=== PATIENT | female | born 1985 ===

== ENCOUNTER 2024-02-14 09:47 | Outpatient (REF) | payer BC, SELFPAY ==
--- NOTE | ~2024-02-14 | MM_ITS ---
EXAMINATION: MM SCREENING DIGITAL BREAST TOMOSYNTHESIS, BILATERAL CLINICAL INFORMATION: Screening. Asymptomatic. COMPARISON: Mammography: Baseline. TECHNIQUE: Digital mammography is performed in craniocaudal and mediolateral oblique views along with computer-aided detection (CAD). Digital breast tomosynthesis is performed in implant-displaced craniocaudal and implant-displaced mediolateral oblique views along with computer-aided detection (CAD). FINDINGS: The breasts are heterogeneously dense, which may obscure small masses (ACR BI-RADS breast composition Category c). Bilateral prepectoral implants are normal-appearing. There are no significant masses, abnormal calcifications, or other abnormalities. MM/MM tomosynthesis screen imp BI IMPRESSION: There are no significant changes from prior study. ASSESSMENT: BI-RADS BI-RADS 2 - Benign Findings RECOMMENDATION: Routine annual mammography screening. 1 year F/U This patient's information was entered into a reminder system with a target due date for their next mammogram. Electronically signed by: Cytnhia Valdez DO 03/06/2024 10:36 PM EDT
== END 2024-02-14 09:48 | disposition home or self-care (01) ==
LOC: HO.MAMMO 09:47
PROVIDERS: PCP Nurse Practitioner Family; Visit Provider Nurse Practitioner Family
DX: Z12.31 Encounter for screening mammogram for malignant neoplasm of breast (principal)
CPT/HCPCS: 77063; 77067

== ENCOUNTER → 2024-02-14 10:00 | Outpatient (BNV) | payer BC, SELFPAY | PROVIDERS: PCP Nurse Practitioner Family; Visit Provider Internal Medicine | DX: Z12.31 Encounter for screening mammogram for malignant neoplasm of breast (principal) | CPT/HCPCS: 77063; 77067 ==

== ENCOUNTER 2024-03-05 10:48 | Outpatient (AMB) | payer BC, SELFPAY ==
--- NOTE | 2024-03-05 10:53 | A.OFFPC_ITS ---
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 Intake Note: patient here for new patient visit Mail Sorter Required: Yes Mail Sorter Language: Citizen Of [place] Is last menstrual period known: Yes Last menstrual period: 02/17/24 Post menopausal: No Patient : No Allergies No Known Allergies Allergy (Verified 03/05/24 11:13) Tobacco use date assessed: 03/05/24 Dental Screening Dental Screen Date: 03/05/24 Did you have a dental visit in the last 12 months?: Yes Did you have a dental problem in the last 6 months where you did not have access to dental care?: No Was dental information given to patient?: Patient has dentist HPI HPI Comments History of Present Illness Details New patient Citizen Of [place]-speaking. Recolated from [place] 3 months ago Prior PCP:? In the [facility] Last office visit/CPE: Last year Acute issue(s): She notes that she generally eats healthy. She does not currently exercise. Sleep has been an issue because she has a lot to process on her mind. She is not used to her new environment in [place] and has a 9 year old child she cares for all alone. She notes that she gets anxious at times. She denies h/o anxiety or depression. She is willing to connect with a therapist PMHx: Astigmatism right eye SurgHx: Breasts implant FHx: Mom: Diabetes, Dad: Diabetes SocHx: Nonsmoker. Does not drink alcohol. No recreational drugs Last eye exam was 1 year in [place] Last mammogram test was with 3 weeks ago; awaiting result. 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 1. Little interest or pleasure in doing things: several days 2. Feeling down, depressed, or hopeless: several days 3. Trouble falling or staying asleep, or sleeping too much: more than half the days 4. Feeling tired or having little energy: several days 5. Poor appetite or overeating: not at all 6. Feeling bad about yourself - or that you are a failure or have let yourself or your family down: not at all 7. Trouble concentrating on things, such as reading the newspaper or watching television: several days 8. Moving or speaking so slowly that other people could have noticed. Or the opposite - being so fidgety or restless that you have been moving around a lot more than usual: not at all 9. Thoughts that you would be better off or of hurting yourself in some way: not at all Total score: 6 Depression Screening Interpretation: Negative Depression Screening Done: Yes 85857 - PHQ-9 Billing: Yes Source: Developed by Drs. Kt Enciso, eBty Parker, Liam Ardon and colleagues, with an educational jackie from [employer]. Thrive Questionnaire Date Thrive assessed: 03/05/24 I am a: Patient What is your living situation today?: I have a steady place to live Within the past 12 months, did the food you bought not last and you didn't have the money to get more?: Sometimes True Within the past 12 months, did you worry whether your food would run out before you got money to buy more?: Sometimes True Do you have trouble paying for medicines?: No Do you have trouble getting transportation to medical appointments?: No Do you have trouble paying your heating and electricity bill?: No Do you have trouble taking care of your child, family member or friend?: No Do you have trouble with day-to-day activities such as bathing, preparing meals, shopping, managing finances, etc.?: No Are you currently unemployed and looking for a job?: No Are you interested in more education?: Yes Please select the resources that you would like help with: Education Currently or been in a relationship where the following occur: No concerns reported THRIVE Score: 2 AUDIT C Alcohol Use Questionnaire (AUDIT-C) 1. How often do you have a drink containing alcohol?: Never Total Score: 0 Score Reviewed/Action Taken: Yes ROOPA-7 AMB Questionnaire ROOPA-7 Date ROOPA - 7 assessed: 03/05/24 Feeling nervous, anxious, or on edge: 0 = Not at all Not being able to stop or control worryin = Not at all Worrying too much about different things: 1 = Several days Trouble relaxin = Several days Being so restless that it is hard to sit still: 1 = Several days Becoming easily annoyed or irritable: 0 = Not at all Feeling afraid as if something awful might happen: 1 = Several days Total ROOPA-7 score (0-4 normal; 5-9 mild; 10-14 moderate; 15-21 severe): 4 Source: Developed by Drs. Kt Enciso, Bety Parker, Liam Ardon and colleagues, with an educational jackie from [employer]. ROOPA-7 Assessment Billing ROOPA-7 Assessment Tool: ROOPA-7 Assessment 57535 Review of Systems Const Details: Denies chills, Denies fatigue, Denies fever(s), Denies headache(s) and Denies weakness HEENT Denies change in vision, Denies dizziness, Denies headache(s), Denies hearing loss, Denies nasal congestion, Denies sinus pain, Denies sinus pressure and Denies sore throat Card Denies chest pain, Denies lightheadedness, Denies dyspnea and Denies other (palpitations) Resp Denies cough, Denies dyspnea and Denies wheezing GI Denies abdominal pain, Denies melena, Denies hematochezia, Denies change in bowel habits, Denies dyspepsia and Denies nausea Denies hematuria and Denies dysuria Musc Denies abnormal gait, Denies myalgias, Denies arthralgias, Denies numbness and Denies tingling Skin/Breast Denies rash, Denies unusual bruising and Denies wounds Neuro Denies abnormal gait, Denies dizziness, Denies headache(s), Denies memory loss, Denies numbness, Denies Sensory deficit (Neuro), Denies tingling and Denies weakness Psych Denies anxiety, Denies depression and Denies memory loss Endo Denies cold intolerance, Denies fatigue, Denies heat intolerance, Denies polydipsia and Denies polyuria Ata/Lymph Denies easy bleeding and Denies easy bruising Aller/Immun Denies wheezing Physical exam (Primary Care) Vital Signs: Last Vital Signs Temp 98.2 F 03/05/24 11:02 Pulse 68 03/05/24 11:02 Resp 16 03/05/24 11:02 BP 100/78 03/05/24 11:02 Pulse Ox 100 03/05/24 11:02 Oxygen Delivery Method Room Air 03/05/24 11:02 BMI result Body Mass Index 23.8 Tobacco/Smoking Status: Tobacco use Status Tobacco use date assessed 03/05/24 03/05/24 11:02 Patient Tobacco Use Status Never used Tobacco 03/05/24 11:02 e-Cigarette/Vaping Use Never Used 03/05/24 11:02 PHQ-9: PHQ-9 Score PHQ-9: Total score 6 03/05/24 11:36 Depression Screening Interpretation: Negative Thrive Assessment: Date of Thrive Assessment Date Thrive assessed 03/05/24 03/05/24 11:13 Currently or been in a relationship where the following occur: No concerns reported Const Other: General: no acute distress, well developed, alert and awake Nutritional Appearance: well nourished Orientation/consciousness: patient oriented x3 HENMT Head: Yes normocephalic and Yes atraumatic Ears: hearing grossly normal bilaterally and TM's normal bilaterally General nose exam: Normal external nose present and Normal nares present Mouth: Normal oral and palatal mucosa present and moist mucous membranes Teeth and gingiva: dentition normal Throat: Yes oropharynx normal Eyes Pupils: Equal, round and reactive pupils present and Pupil accommodation reflex normal EOM: EOMs intact bilaterally Neck Neck: Yes normal visual inspection, Yes no lymphadenopathy and Yes trachea midline Thyroid: Thyroid normal Carotids: no bruits Lymphatic: no lymphadenopathy noted Chest Chest palpation & inspection: normal inspection of the chest Resp Effort & Inspection: normal respiratory effort Auscultation: clear to auscultation bilaterally Cardio Rate: regular rate Rhythm: regular rhythm Heart sounds: S1 normal heart sound present, S2 normal heart sound present, no gallops, no murmurs and no rubs Bruits: no abdominal aortic bruits and no carotid bruits GI Palpation (GI): No Abdominal aortic bruit present, Soft to palpation, nontender, No hepatosplenomegaly present and No Rebound tenderness present Auscultation: normal bowel sounds General: Yes no CVA tenderness Back/Spine/Pelvis Back: no CVA tenderness Cervical Spine: cervical ROM normal and No Cervical spine tenderness Thoracic/Lumbar Spine: thoraco-lumbar ROM normal, No pain with thoraco-lumbar ROM, No thoracic spinal tenderness and No lumbar spinal tenderness Skin General: warm and dry. Normal skin color. Normal skin turgor Lesions: no lesions Rashes: no rashes Trauma: no lacerations or abrasions Wounds: no wounds Nails: normal Neuro General: patient oriented x3, gait normal and CN's II-XI intact bilaterally Cranial nerves: Yes Equal, round and reactive pupils present Cognition (Neuro): normal cognition Gait exam (Neuro): Normal gait present Motor exam (neuro): 5/5 motor strength present throughout Sensory Exam: No Sensory deficit (Neuro) Deep tendon reflexes (DTR's): Right patellar reflex intensity grade: 2+ and Left patellar reflex intensity grade: 2+ Extrem General: Yes normal to inspection, No edema and No calf tenderness Psych Appearance: grossly normal Affect: normal affect Attitude: cooperative Thought process: Normal thought process present Assessment and Plan Assessment & Plan (1) Normal physical examination, routine: Code(s): Z00.00 - Encounter for general adult medical examination without abnormal findings Plan: No significant physical restrictions or limitations noted Healthy diet and routine exercise encouraged Advised to get lab work done and follow-up in 2-3 weeks for telehealth visit for labs review Return with worsening or new symptoms Verbalized understanding and agreed with the plan (2) Anxiousness: Code(s): F41.9 - Anxiety disorder, unspecified Plan: She relocated from [place] to [place] 3 months ago. She is trying to adjust to her new environment. She also has a 9-year-old child she soley supports Sleep has been an issue. She has a lot to process on her mind. She is anxious at times Instructed on sleep hygiene Routine exercise encouraged She met with the [facility] who will refer her to a therapist Advised to follow-up with worsening or new symptoms Verbalized understanding and agreed with the plan (3) Sleep disturbance: Code(s): G47.9 - Sleep disorder, unspecified Plan: Plan as above (4) Routine eye exam: Code(s): Z01.00 - Encounter for examination of eyes and vision without abnormal findings Plan: Last eye exam was 1 year in [place] Referred to Ophthalmology for routine eye exam (5) Laboratory tests ordered as part of a complete physical exam (CPE): Code(s): Z00.00 - Encounter for general adult medical examination without abnormal findings Plan: Fasting labs ordered as part of a complete physical exam. Advised to fast for at least 10 hours before getting labs drawn. May drink water Verbalized understanding and agreed with treatment plan. Orders: Orders Complete Blood Count Auto Diff Today Z00.00 - Encounter for general adult medical examination without abnormal findings Comprehensive Watkins. Panel Fast Today Z00.00 - Encounter for general adult medical examination without abnormal findings Lipid Panel Today Z00.00 - Encounter for general adult medical examination without abnormal findings TSH reflex Free T4 Today Z00.00 - Encounter for general adult medical examination without abnormal findings Microalbumin, Random (w Creat) Today Z00.00 - Encounter for general adult medical examination without abnormal findings UA CC w/rflx Micro + Cult Today Z00.00 - Encounter for general adult medical examination without abnormal findings Referrals Ophthalmology Referral Z01.00 - Encounter for examination of eyes and vision without abnormal findings Coding Level of Care Code New Pt Prev Care 40-64y(54447) Diagnoses Normal physical examination, routine Z00.00 Anxiousness F41.9 Sleep disturbance G47.9 Routine eye exam Z01.00 Laboratory tests ordered as part of a complete physical exam (CPE) Z00.00 Additional Codes ROOPA-7 Assessment Billing - ROOPA-7 Assessment Tool: ROOPA-7 Assessment 12514 ([id number])
[2024-03-05 11:02] VITALS: BP 100/78; PULSE 68; RESP 16; TEMP 36.8; O2SAT 100; BMI 23.8
== END 2024-03-05 12:03 | disposition home or self-care (01) ==
PROVIDERS: PCP Nurse Practitioner Family; Visit Provider Nurse Practitioner Family
DX: Z00.00 Encounter for general adult medical examination without abnormal findings (principal); F41.9 Anxiety disorder, unspecified; G47.9 Sleep disorder, unspecified

== ENCOUNTER 2024-03-05 10:48 | Outpatient (REF) | payer BC, SELFPAY ==
[2024-03-05 15:13] LABS: Basophils Absolute Auto 0.1 X10*3/uL (0.0-0.2); Basophils Percent Auto 0.7 % (0-2); Eosinophils Percent Auto 0.1 % (0-4); Hematocrit 46.8 % (37.0-47.0); Hemoglobin 15.1 g/dl (12.0-16.0); Imm Gran Abs Auto 0.02 X10*3/uL (0.00-0.03); Imm Gran Pct Auto 0.3 % (0.0-0.4); Lymphocytes Absolute Auto 2.6 X10*3/uL (1.2-4.9); Lymphocytes Percent Auto 34.3 % (20-40); Mean Corpuscular HGB Conc 32.3 g/dl (31.0-35.0); Mean Corpuscular Volume 86.8 fL (80.0-98.0); Mean Platelet Volume 8.7 fL (9.4-12.3); Monocytes Absolute Auto 0.4 X10*3/uL (0.1-1.2); Neutrophils Absolute Auto 4.4 x10*3/uL (2.0-8.3); Neutrophils Percent Auto 59.6 % (45-73); Platelet Count 730 X10*3/uL (160-400); Red Blood Count 5.39 X10*6/uL (4.20-5.50); Red Cell Distribution Width 12.8 % (11.0-16.0); White Blood Count 7.4 X10*3/uL (4.8-10.8)
[2024-03-05 15:17] LABS: Appearance Urine Cloudy; Color Urine Yellow; Glucose Urine UA Negative (Negative); Leukocyte Esterase Urine Large (3+) (Negative); Nitrite Urine Negative (Negative); PH 7.5 (5.0-9.0); Specific Gravity - Urine 1.015 (1.005-1.025); UMIC TRIGGER UACC YES; Urine Blood Trace (Negative); Urine Ketones Negative (Negative); Urine Protein 30 (1+) mg/dL (Neg-Trace)
[2024-03-05 15:21] LABS: Bacteria Urine 2+ (None Seen); Hyaline Casts Urine 0-2 /LPF (0-2); UACC Culture Trigger YES; WBC Urine 21-50 /HPF (0-5)
[2024-03-05 15:43] LABS: Creatinine Urine 68.22 mg/dL; Microalbum/Creatinine Ratio Ur 479.3 ug/mg cr (<30)
[2024-03-05 15:58] LABS: Alanine Aminotransferase 9 U/L (0-31); Albumin Level 3.9 g/dL (3.5-5.0); Alkaline Phosphatase 93 U/L (39-117); Anion Gap 13 (12-20); Aspartate Amino Transferase 17 U/L (5-31); Bilirubin Total 0.4 mg/dL (0.0-1.0); Blood Urea Nitrogen 9 mg/dL (9-16); Calcium 9.6 mg/dL (8.4-10.2); Carbon Dioxide 27 mmol/L (22-29); Chloride 104 mmol/L (96-108); Cholesterol 156 mg/dL (<200); Estimated Glomerular Filt Rate > 60; Glucose Fasting 97 mg/dL (60-99); HDL Cholesterol 30 mg/dL (>40); LDL Cholesterol Calculated 87 mg/dL (<100); Potassium 4.5 mmol/L (3.3-5.1); Sodium 139 mmol/L (135-145); Total Protein 7.5 g/dL (6.5-8.0); Triglycerides 199 mg/dL (<150)
[2024-03-05 16:08] LABS: TSH reflex Free T4 0.18 uIU/mL (0.32-4.0)
[2024-03-05 17:36] LABS: Free T4 (Free Thyroxine) 0.93 ng/dL (0.71-1.85)
[2024-03-05 20:25] LABS: MANUAL DIFF FLAG NO
== END 2024-03-05 10:49 | disposition home or self-care (01) ==
LOC: HO.WFDLDS 10:48
PROVIDERS: PCP Nurse Practitioner Family; Visit Provider Nurse Practitioner Family
DX: Z00.00 Encounter for general adult medical examination without abnormal findings (principal); F41.9 Anxiety disorder, unspecified; F32.A Depression, unspecified; G47.9 Sleep disorder, unspecified; R82.90 Unspecified abnormal findings in urine
CPT/HCPCS: 36415; 80053; 80061; 81001; 82043; 82570; 84439; 84443; 85025; 87086; 96127

== ENCOUNTER 2024-03-06 10:38 | Outpatient (AMB) | payer BC, SELFPAY ==
--- NOTE | 2024-03-06 09:51 | MHC.PC.OV ---
Vital Signs 03/06/24 10:43 Height 5 ft 3 in Weight 134 lb 2 oz BMI 23.8 BP 124/84 Blood Pressure Location Lt brachial Position Sitting Respiration 16 Pulse 76 Pulse Source Pulse Oximeter Temp 98.0 F Temp Source Oral Pulse Oximetry (%) 100 Oxygen Delivery Method Room Air Intake Visit Reasons: follow up labs Intake Note: patient here to follow up labs Electronics Maintenance Technician Required: Yes Electronics Maintenance Technician Language: [place]ese Is last menstrual period known: Yes Last menstrual period: 02/12/24 Post menopausal: No Patient : No Allergies No Known Allergies Allergy (Verified 03/06/24 10:41) Tobacco use date assessed: 03/05/24 Dental Screening Dental Screen Date: 03/05/24 HPI HPI Comments History of Present Illness Details 38-year-old female Taiwanese-speaking female presents for review of recent lab results She offers no complaints and denies acute symptoms at this time Interpretation by a professional surveying crew rodman [facility] Family History (Updated 03/05/24 @ 11:13 by Sushma Haji) Mother Diabetes Father Diabetes Social History Housing: Apartment Patient Tobacco Use Status: Never used Tobacco e-Cigarette/Vaping Use: Never Used Second Hand Smoke Exposure: No service: No Current occupational status: employed 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 Kt Enciso, Bety Parker, Liam Ardon and colleagues, with an educational jackie from [employer]. Review of Systems Const Details: Const Denies chills, Denies fatigue, Denies fever(s), Denies headache(s) and Denies weakness ENT Denies dizziness and Denies headache(s) Card Denies chest pain, Denies lightheadedness, Denies dyspnea and Denies other (Palpitations) Resp Denies cough, Denies dyspnea, Denies wheezing and Denies other ( shortness of breath) GI Denies abdominal pain, Denies melena, Denies hematochezia, Denies change in bowel habits, Denies dyspepsia and Denies nausea Denies hematuria and Denies dysuria Musc Denies abnormal gait, Denies myalgias, Denies arthralgias, Denies numbness and Denies tingling Skin/Breast Denies rash, Denies unusual bruising and Denies wounds Neuro Denies abnormal gait, Denies dizziness, Denies headache(s), Denies memory loss, Denies numbness, Denies Sensory deficit (Neuro), Denies tingling and Denies weakness Psych Denies anxiety, Denies depression, Denies memory loss Endo Denies cold intolerance, Denies fatigue, Denies heat intolerance, Denies polydipsia and Denies polyuria Aller/Immun Denies wheezing Physical exam (Primary Care) Vital Signs: Last Vital Signs Temp 98.0 F 03/06/24 10:43 Pulse 76 03/06/24 10:43 Resp 16 03/06/24 10:43 BP 124/84 03/06/24 10:43 Pulse Ox 100 03/06/24 10:43 Oxygen Delivery Method Room Air 03/06/24 10:43 BMI result Body Mass Index 23.8 Tobacco/Smoking Status: Tobacco use Status Tobacco use date assessed 03/05/24 03/06/24 09:53 Patient Tobacco Use Status Never used Tobacco 03/06/24 09:53 e-Cigarette/Vaping Use Never Used 03/06/24 09:53 Thrive Assessment: Date of Thrive Assessment Date Thrive assessed 03/05/24 03/06/24 09:53 Const Other: General: no acute distress and well developed Nutritional Appearance: well nourished Orientation/consciousness: patient oriented x3 HENMT Head: Yes normocephalic and Yes atraumatic Eyes General: appearance normal, both eyes and all related structures Pupils: Equal, round and reactive pupils present EOM: EOMs intact bilaterally Resp Effort & Inspection: normal respiratory effort Auscultation: clear to auscultation bilaterally Cardio Rate: regular rate Rhythm: regular rhythm Heart sounds: S1 normal heart sound present, S2 normal heart sound present, no gallops, no murmurs and no rubs GI Palpation (GI): No Abdominal aortic bruit present, Soft to palpation, nontender, No hepatosplenomegaly present and No Rebound tenderness present Auscultation: normal bowel sounds General: Yes no CVA tenderness Back/Spine/Pelvis Back: no CVA tenderness Cervical Spine: cervical ROM normal and No Cervical spine tenderness Thoracic/Lumbar Spine: thoraco-lumbar ROM normal, No pain with thoraco-lumbar ROM, No thoracic spinal tenderness and No lumbar spinal tenderness Extrem General: Yes normal to inspection, No edema and No calf tenderness Skin General: warm and dry. Normal skin color. Normal skin turgor Neuro General: patient oriented x3, gait normal and no focal neuro deficit Cranial nerves: Yes Equal, round and reactive pupils present Cognition (Neuro): normal cognition Gait exam (Neuro): Normal gait present Sensory Exam: No Sensory deficit (Neuro) Psych Appearance: grossly normal Affect: normal affect Attitude: cooperative Thought process: Normal thought process present Assessment and Plan Assessment & Plan (1) Thrombocytosis: Code(s): D75.839 - Thrombocytosis, unspecified Plan: Recent platelet count is elevated, 730 She notes no rashes currently taking aspirin 81 mg daily; encouraged to continue taking the medication Referred to [facility] hematology/oncology (2) Hypertriglyceridemia: Code(s): E78.1 - Pure hyperglyceridemia Plan: Recent triglycerides level is elevated, 199; HDL level is low, 30; total cholesterol and LDL, levels are normal Advised to limit foods high in saturated fat and avoid foods high in trans fat Routine exercise encouraged Will recheck lipid panel level. Advised to fast for 10-12 hours, may drink water only, and get blood work done before her next visit Follow-up in 3 months Verbalized understanding and agreed with the treatment plan (3) Low TSH level: Code(s): R79.89 - Other specified abnormal findings of blood chemistry Plan: Recent TSH level is low, 0.18, free T4 is normal Denies history of thyroid disease Reports unintended weight loss of 10 lb within the past 2 months; restlessness/irritability at times; she has been losing her hair; she has trouble concentrating at work at times Will recheck TSH levels and make changes as needed Verbalized understanding and agreed with the plan (4) Microalbuminuria: Code(s): R80.9 - Proteinuria, unspecified Plan: Recent microalbumin/creatinine ratio is significantly elevated, 479.3 She admits to adequate hydration. Denies caffeine or soda beverages BUN and creatinine are normal Adequate hydration encouraged Will referred to [facility] nephrology (5) Abnormal urinalysis: Code(s): R82.90 - Unspecified abnormal findings in urine Plan: Recent urinalysis is positive for leukocytes, blood, protein, and bacteria. However, preliminary culture revealed no growth Will review final culture result and make changes as needed Orders: Orders TSH reflex Free T4 Today R79.89 - Other specified abnormal findings of blood chemistry Lipid Panel 3 Months E78.1 - Pure hyperglyceridemia Referrals Nephrology Referral R80.9 - Proteinuria, unspecified Hematology & Oncology Referral D75.839 - Thrombocytosis, unspecified Coding Level of Care Code Est Pt Level 4 (45396) Diagnoses Thrombocytosis D75.839 Hypertriglyceridemia E78.1 Low TSH level R79.89 Microalbuminuria R80.9 Abnormal urinalysis R82.90
[2024-03-06 10:43] VITALS: BP 124/84; PULSE 76; RESP 16; TEMP 36.7; O2SAT 100; BMI 23.8
== END 2024-03-06 11:48 | disposition home or self-care (01) ==
LOC: HO.HMCFM 10:38
PROVIDERS: PCP Nurse Practitioner Family; Visit Provider Nurse Practitioner Family
DX: D75.839 Thrombocytosis, unspecified (principal); E78.1 Pure hyperglyceridemia; R79.89 Other specified abnormal findings of blood chemistry; R80.9 Proteinuria, unspecified; R82.90 Unspecified abnormal findings in urine

== ENCOUNTER → 2024-03-06 10:38 | Outpatient (BNVA) | payer BC, SELFPAY | PROVIDERS: PCP Nurse Practitioner Family; Visit Provider Nurse Practitioner Family | DX: D75.839 Thrombocytosis, unspecified (principal); E78.1 Pure hyperglyceridemia; R94.6 Abnormal results of thyroid function studies; R80.9 Proteinuria, unspecified; R82.90 Unspecified abnormal findings in urine ==

== ENCOUNTER → 2024-05-05 09:51 | Outpatient (BNV) | payer BC, SELFPAY | PROVIDERS: PCP Nurse Practitioner Family; Referring Provider Nurse Practitioner Family; Visit Provider Internal Medicine | DX: D75.839 Thrombocytosis, unspecified (principal) | CPT/HCPCS: 99204 ==

== ENCOUNTER 2024-09-10 09:53 | Outpatient (REF) | payer BC, SELFPAY ==
--- NOTE | ~2024-09-10 | US_ITS ---
CLINICAL HISTORY: ? Hepatosplenomegaly US abdomen complete Comparison: None Findings: The visualized pancreas is normal. The aorta and inferior vena cava are normal caliber. The appearance of the liver suggests fatty infiltration without focal lesion. There is no intrahepatic bile duct dilatation. The common duct is 2.0 mm in diameter. The gallbladder is normal. There is no sonographic Power sign. The main portal vein is antegrade. The right kidney is 12.3 cm in length. The left kidney is 10.6 cm in length. The spleen is normal. No ascites. IMPRESSION: 1. Hepatic steatosis. This document has been electronically signed by: Joseph Yang MD on 09/10/2024 18:37:15
== END 2024-09-10 09:54 | disposition home or self-care (01) ==
LOC: HO.US 09:53
PROVIDERS: Visit Provider Internal Medicine
DX: D75.839 Thrombocytosis, unspecified (principal)
CPT/HCPCS: 76700

== ENCOUNTER → 2024-09-10 09:58 | Outpatient (BNV) | payer BC, SELFPAY | PROVIDERS: Visit Provider Specialist | DX: R16.2 Hepatomegaly with splenomegaly, not elsewhere classified (principal) | CPT/HCPCS: 76700 ==